=== PATIENT | female | born 1990 | race Caucasian/White ===

== ENCOUNTER → 2021-03-01 | Day surgery (SDC) | payer OTHER ==
[~2021-03-01] VITALS: Ht 160 cm; Wt 96.2 kg
[~2021-03-01] MED LIST: CEPHALEXIN500 MG PO; MUPIROCIN 2%22 GM TOP; PRENATAL FORMU1 EACH PO
== END | disposition home or self-care (01) ==
LOC: FAS 08:26
DX: L72.3 Sebaceous cyst (principal); L08.9 Local infection of the skin and subcutaneous tissue, unspecified; E66.9 Obesity, unspecified; Z97.5 Presence of (intrauterine) contraceptive device; Z87.891 Personal history of nicotine dependence
CPT/HCPCS: J2001

== ENCOUNTER 2021-09-13 07:10 | Inpatient (IN) | payer OTHER ==
[2021-09-13 08:20] LABS: HGB 11.1 g/dl (12.5-16.0); MCH 26.6 pg (25.0-31.0); MCHC 32.6 g/dL (32.0-36.0); MCV 81.3 fL (78.0-100.0); MPV 10.8 fL (6.0-9.5); RBC 4.18 M/uL (4.20-5.40); RDW 14.4 % (11.5-14.0); WBC 8.8 K/uL (4.0-10.5)
[2021-09-13 10:26] LABS: BILIRUBIN NEGATIVE (NEGATIVE); BLOOD NEGATIVE Ery/uL (NEGATIVE); CLARITY CLEAR (CLEAR); COLOR YELLOW (YELLOW); GLUCOSE (U) NORMAL (NORMAL); LEUKOCYTES NEGATIVE Leu/uL (NEGATIVE); NITRITE NEGATIVE (NEGATIVE); PROTEIN NEGATIVE (NEGATIVE); SPECIFIC GRAVITY >=1.030 (1.001-1.030); UROBILINOGEN 0.2 mg/dL (0.2-1.0); pH 6.5 (5.0-9.0)
[2021-09-13 12:51] LABS: HCT 35.2 % (37.0-47.0); HGB 11.3 g/dl (12.5-16.0); MCH 26.2 pg (25.0-31.0); MCHC 32.1 g/dL (32.0-36.0); MCV 81.5 fL (78.0-100.0); MPV 10.6 fL (6.0-9.5); RBC 4.32 M/uL (4.20-5.40); RDW 14.1 % (11.5-14.0)
[2021-09-13 13:06] LABS: INR 1.06 (0.9-1.2); PROTHROMBIN TIME 13.2 SECONDS (11.8-13.4); PTT 25.8 SECONDS (24.4-34.7)
[2021-09-13 16:23] LABS: HCT 34.1 % (37.0-47.0); HGB 10.9 g/dl (12.5-16.0); MCH 26.1 pg (25.0-31.0); MCV 81.6 fL (78.0-100.0); MPV 10.8 fL (6.0-9.5); RBC 4.18 M/uL (4.20-5.40); RDW 14.2 % (11.5-14.0); WBC 15.4 K/uL (4.0-10.5)
[2021-09-13 16:28] LABS: INR 1.04 (0.9-1.2); PTT 25.8 SECONDS (24.4-34.7)
[2021-09-14 06:19] LABS: HCT 28.6 % (37.0-47.0); HGB 9.2 g/dl (12.5-16.0); MCH 26.1 pg (25.0-31.0); MCHC 32.2 g/dL (32.0-36.0); MCV 81.3 fL (78.0-100.0); MPV 10.5 fL (6.0-9.5); RBC 3.52 M/uL (4.20-5.40); RDW 14.4 % (11.5-14.0); WBC 10.6 K/uL (4.0-10.5)
[2021-09-14 06:42] LABS: INR 1.06 (0.9-1.2); PROTHROMBIN TIME 13.2 SECONDS (11.8-13.4); PTT 28.1 SECONDS (24.4-34.7)
== END 2021-09-15 13:02 | disposition home or self-care (01) | DRG 787 ==
LOC: FIS 07:10 → FOB 07:15 → FIS 07:50 → FOB 07:51
PROVIDERS: ADMIT Obstetrics & Gynecology
PROC: 10D00Z1 Extraction of Products of Conception, Low, Open Approach (ICD-10-PCS; principal; 2021-09-13 09:00)
DX: O69.4XX0 Labor and delivery complicated by vasa previa, not applicable or unspecified (principal); D62 Acute posthemorrhagic anemia; O34.211 Maternal care for low transverse scar from previous cesarean delivery; Z3A.38 38 weeks gestation of pregnancy; Z37.0 Single live birth; Z20.822 Contact with and (suspected) exposure to COVID-19; O9A.12 Malignant neoplasm complicating childbirth; C43.9 Malignant melanoma of skin, unspecified; O99.214 Obesity complicating childbirth; O90.81 Anemia of the puerperium
CPT/HCPCS: 36415; 81003; 85384; 85610; 85730; 86850; 86900; 86901; J0456; J0690; J1100; J1885; J2210; J2274; J2370; J2405; J2550; J2916; J3010; J7050; J7120